=== PATIENT | female | born 1950 ===

== ENCOUNTER 2016-07-28 09:45 | Outpatient (CLI) | payer OTHER ==
--- NOTE | 2016-07-28 18:33 | DIAGNOSTIC IMAGING REPORT ---
REFERRING PHYSICIAN/PROVIDER: Gracia Sweet MD CONSULTING SALES PRODUCT SPECIALIST: Ace Marinelli MD PROCEDURE: M-mode 2D echocardiography with spectral and color flow Doppler TECHNICAL QUALITY: The study quality was technically adequate. INDICATION: SOB RHYTHM DURING PROCEDURE: The patient was in normal sinus rhythm during the exam. INTERPRETATIONS: LEFT VENTRICLE: The left ventricle is normal in size. There is borderline concentric left ventricular hypertrophy. The left ventricular ejection fraction is grossly normal. The ejection fraction is at least 50%. There are no obvious focal wall motion abnormalities noted but poor endocardial definition reduces the sensitivity for the detection of such. Assessment of diastolic parameters indicates the relaxation abnormality of the left ventricle, consistent with normal filling pressures. RIGHT VENTRICLE: The right ventricle is normal in size and function. ATRIA: The left atrium is borderline dilated. The right atrial size is normal. The interatrial septum is intact with no evidence for an atrial septal defect. MITRAL VALVE: Mitral valve is normal in structure and function. There is trace mitral regurgitation. AORTIC VALVE: Valve is normal in structure and function. There is no aortic regurgitation. TRICUSPID VALVE: The tricuspid valve is normal in structure but abnormal and function. There is mild tricuspid regurgitation. The right ventricular systolic pressure is estimated at 42 mmHg assuming a right atrial pressure of 3 mmHg. PULMONIC VALVE: The pulmonic valve is normal in structure and function. There is trace pulmonic regurgitation. GREAT VESSELS: The aortic root is normal size. The dimensions of the os aorta are normal. The IVC is of normal diameter collapses greater than 50% the sniff. This suggests a low right atrial pressure of 3 mmHg. PERICARDIUM: There is no pericardial effusion. IMPRESSION: 1. There is borderline left ventricular hypertrophy with normal LV ejection fraction and grade 1 LV diastolic dysfunction. 2. The right ventricle is normal in size and function. 3. There is no evidence of significant valvular abnormalities. 4. There is evidence for mild pulmonary hypertension with right ventricular systolic pressure at 42 mmHg. 5. The aortic root is normal in size.
== END 2016-07-28 23:00 ==
LOC: US SRH 09:45
DX: I51.7 Cardiomegaly (principal); I27.2 Other secondary pulmonary hypertension

== ENCOUNTER 2016-07-29 09:11 | Outpatient (CLI) | payer OTHER | END 2016-07-29 23:00 | LOC: RT SRH 09:11 | DX: R06.02 Shortness of breath (principal); R91.8 Other nonspecific abnormal finding of lung field ==